=== PATIENT | female | born 1970 | race Caucasian/White ===

== ENCOUNTER 2020-11-09 12:48 | Outpatient (REF) | payer OTHER, SELFPAY ==
[2020-11-09 14:08] LABS: Hematocrit 42.7 % (37-47); Mean Corpuscular HGB Conc 30.4 g/dl (31.0-35.0); Mean Corpuscular Volume 78.8 fL (80-98); Mean Platelet Volume 9.5 fL (9.4-12.3); Platelet Count 462 X10*3/uL (160-400); Red Blood Count 5.42 X10*6/uL (4.20-5.50); Red Cell Distribution Width 16.4 % (11.0-16.0); White Blood Count 10.8 X10*3/uL (4.8-10.8)
[2020-11-09 14:18] LABS: INTERNATIONAL NORM RATIO 1.3 (0.9-1.1); Prothrombin Time 15.9 SEC (10.8-13.0)
[2020-11-09 14:23] LABS: Glucose Urine UA NEG (NEG); Leukocyte Esterase Urine NEG (NEG); Nitrite Urine NEG (NEG); Urine Blood NEG (NEG); Urine Ketones NEG (NEG); Urine Protein 1+ MG/DL (NEG-TRACE)
[2020-11-09 14:28] LABS: Appearance Urine CLEAR; Color Urine YELLOW
[2020-11-09 14:37] LABS: RBC Urine 0-2 /HPF (0); Squamous Epithelial Cell Urine TRACE /LPF; WBC Urine 0 /HPF (0-4)
[2020-11-09 14:41] LABS: Alanine Aminotransferase 15 U/L (0-31); Alkaline Phosphatase 139 U/L (39-117); Anion Gap 12 (12-20); Aspartate Amino Transferase 16 U/L (5-31); Bilirubin Total 0.3 mg/dL (0.0-1.0); Blood Urea Nitrogen 10 mg/dL (9-16); Calcium 8.7 mg/dL (8.4-10.2); Carbon Dioxide 30 mmol/L (22-29); Chloride 101 mmol/L (96-108); Cholesterol 168 mg/dL; Estimated Glomerular Filt Rate > 60; Glucose Fasting 94 mg/dL (60-99); HDL Cholesterol 49 mg/dL; Iron 56 mcg/dL (30-160); LDL Cholesterol Calculated 78 mg/dl; Percent Iron Saturation 12 % (15-50); Potassium 3.7 mmol/L (3.3-5.1); Sodium 139 mmol/L (135-145); Total Iron Binding Capacity 471 mcg/dL (228-428); Total Protein 7.4 g/dL (6.5-8.0); Triglycerides 207 mg/dL; Unsaturated Iron Binding 415 ug/dL
[2020-11-09 14:50] LABS: TSH reflex Free T4 2.57 uIU/mL (0.32-4.0)
== END 2020-11-09 12:49 | disposition home or self-care (01) ==
LOC: HO.HMGCLDS 12:48
PROVIDERS: PCP Internal Medicine; Visit Provider Internal Medicine
DX: I10 Essential (primary) hypertension (principal); I48.91 Unspecified atrial fibrillation; G25.81 Restless legs syndrome; Z79.01 Long term (current) use of anticoagulants
CPT/HCPCS: 36415; 80053; 80061; 81001; 83540; 84443; 85027; 85610

== ENCOUNTER → 2021-01-10 13:57 | Outpatient (BNVA) | payer OTHER, SELFPAY | PROVIDERS: PCP Internal Medicine; Visit Provider Internal Medicine | DX: I48.91 Unspecified atrial fibrillation (principal); Z51.81 Encounter for therapeutic drug level monitoring; Z79.01 Long term (current) use of anticoagulants | CPT/HCPCS: 85610; 99201; 99202 ==

== ENCOUNTER 2021-01-12 13:01 | Outpatient (REF) | payer OTHER, SELFPAY ==
--- NOTE | ~2021-01-12 | XR_ITS ---
EXAMINATION: XR KNEE, LEFT CLINICAL INFORMATION: Pain left knee COMPARISON: X-ray left knee March 2010 TECHNIQUE: Four views of the left knee. FINDINGS: Medial Compartment: Joint space narrowing and marginal osteophytes indicative of mild to moderate arthrosis. Lateral Compartment: There are marginal osteophytes indicative of at least mild arthrosis. Patellofemoral Compartment: Marginal osteophytes indicative of mild arthrosis. There is no joint effusion. There is no fracture or bone lesion. XR/XR knee LT 4V IMPRESSION: Osteoarthritis with degenerative changes mild to moderate medial compartment likely slightly progressed compared with the 2010 exam.
== END 2021-01-12 13:02 | disposition home or self-care (01) ==
LOC: HO.HMGCX 13:01
PROVIDERS: PCP Internal Medicine; Visit Provider Internal Medicine
DX: M25.562 Pain in left knee (principal)
CPT/HCPCS: 73564

== ENCOUNTER → 2021-01-16 13:03 | Outpatient (BNVA) | payer OTHER, SELFPAY | PROVIDERS: PCP Internal Medicine; Visit Provider Internal Medicine | DX: I48.91 Unspecified atrial fibrillation (principal); Z79.01 Long term (current) use of anticoagulants; Z51.81 Encounter for therapeutic drug level monitoring | CPT/HCPCS: 85610; 99211 ==